=== PATIENT | female | born 1940 | race Two or more races ===

== ENCOUNTER → 2016-07-01 | Outpatient (CLI) | payer MEDICAID ==
[~2016-07-01] MED LIST: ACET1CAP18 PO; ATOR20TA15 PO; LORA-373 PO; LORA0.5T PO; MECL25CH CHEW
--- NOTE | 2016-07-03 19:35 | EKG ---
Date Performed: 07/01/2016 Time Performed: 14:12:04 PTAGE: 75 years EKG: Sinus rhythm . Leftward axis Poor R wave progression - probable normal variant Inferior and anterior T wave change s are nonspecific Borderline ECG NO PREVIOUS TRACING DOCTOR: Elisabeth Sinclair Interpretating Date/Time 07/03/2016 19:34:13
== END ==
LOC: PHPRE 13:24
PROVIDERS: ATTEND Orthopaedic Surgery
DX: Z01.810 Encounter for preprocedural cardiovascular examination (principal)
CPT/HCPCS: 93005

== ENCOUNTER → 2016-07-09 | Day surgery (SDC) | payer MEDICAID ==
[~2016-07-09] VITALS: Ht 160 cm; Wt 83.0 kg
[~2016-07-09] MED LIST changes: +ACETAMINOPHEN/HYDROcodone 325 MG/5 MG TAB ONE; +BUPIVACAINE HCL PF 0.5% 30 ML VIAL ONE; +BUPIVACAINE/EPINEPHRINE 0.5% PF 30 ML VIAL ONE; +FAMOTIDINE 20 MG/2 ML VIAL ONE; +LACTATED RINGER'S 1000 ML INJ 1,000 ML ONE; -LORA0.5T PO; +MEPERIDINE HCL 25 MG/ML VIAL ONE; +MIDAZOLAM HCL 2 MG/2 ML VIAL ONE; +MORPHINE SULFATE 4 MG/ML INJ ONE; +PROPOFOL 200 MG/20 ML AMP IV ONE; +TRIAMCINOLONE ACETONIDE 40 MG/ML VIAL ONE
[2016-07-09 07:39] VITALS: BP 113/65; PULSE 71; RESP 16; TEMP 97.5; O2SAT 95
[2016-07-09 10:11] VITALS: PULSE 94
[2016-07-09 12:55] VITALS: BP 128/77; PULSE 68; RESP 18; TEMP 97.8; O2SAT 98
--- NOTE | 2016-07-09 14:43 | MP ---
cc: ANSON BROWNLEE M.D. DATE OF SURGERY: 07/09/2016 PREOPERATIVE DIAGNOSIS 1. Possible loose body of the right knee joint. 2. Osteoarthritis of the right knee joint. POSTOPERATIVE DIAGNOSIS 1. Attached body right knee joint. 2. Osteoarthritis right knee joint. 3. Tears of the medial and lateral meniscus. PROCEDURE Arthroscopic surgery with subtotal medial and lateral meniscectomy, chondroplasty medial compartment and patellofemoral joint. DETAILS OF PROCEDURE The patient was placed on the operating table in a supine position. Adequate general anesthesia was administered by Dr. Locke the anesthesiologist. The patient's right knee was prepped and draped in the usual sterile fashion. A timeout was called and the patient's name, location, procedure, etc. were fully confirmed. An Esmarch bandage was used to exsanguinate the lower extremity and a pneumatic tourniquet was inflated to a pressure of 300. An anterolateral portal was used for introduction of the scope and the joint was distended with lactated Ringer's solution. A systematic examination of the joint was carried out with instrumentation being placed through an anteromedial portal and probing throughout. We did encounter osteoarthritic changes of grade I of the medial compartment and there was fraying and degenerative tears of the anterior horn to the middle one-third of the medial meniscus. The suprapatellar pouch did reveal considerable synovial thickening. No loose bodies were encountered in the suprapatellar pouch. The intercondylar fossa was entered and both anterior and posterior cruciate ligaments were intact. We did encounter an attached calcification or ossification at the level of the posterior cruciate ligament attachment in the area of the tibia. It was fully attached to the posterior cruciate ligament and could not be fully removed without sacrificing the ligament. We therefore simply made it smaller in size using a motorized resector. The edges of the lateral meniscus were also torn and the edges were then removed with the same resector. The articular surfaces laterally did appear to be satisfactorily preserved. There did appear to be grade I-II patellofemoral arthritis and this was completed with a chondroplasty utilizing the motorized resector. A localized synovectomy was performed in the same area. Care was taken to rule out the presence of any actual loose body floating in the joint. The instruments were then removed after thorough irrigation and aspiration. The three stab wounds were closed with simple 3-0 nylon. An intra-articular injection through the lateral portal was carried out with 10 cc of 0.5% Marcaine with epinephrine and 1 cc of Kenalog. The procedure was tolerated well and the patient was transferred to the recovery room in satisfactory condition. Sponge counts, needle counts and instrument counts were reportedly correct x2 and the estimated blood loss was nil. The total tourniquet time was 19 minutes. Anosn Brownlee MD HERNÁN/SANCHEZ /10:09 AM /2:33 PM
== END | disposition home or self-care (01) ==
LOC: PHSDC 07:11
PROVIDERS: ATTEND Orthopaedic Surgery
DX: M17.11 Unilateral primary osteoarthritis, right knee (principal); M23.211 Derangement of anterior horn of medial meniscus due to old tear or injury, right knee; M94.8X6 Other specified disorders of cartilage, lower leg; K21.9 Gastro-esophageal reflux disease without esophagitis
CPT/HCPCS: 01400; 29880; J2175; J2250; J2270; J3010; J3301; J7120